=== PATIENT | female | born 1960 | race African-American/Black ===

== ENCOUNTER 2019-03-07 14:35 | Inpatient (IN) ==
[~2019-03-07 14:35] MED LIST: D50W SYRINGE ONE
[2019-03-07] MEDS ORDERED: D50W SYRINGE IV ONE (14:55)
[2019-03-07 15:51] LABS: BILIRUBIN URINE 2+ (NEGATIVE); BLOOD URINE 4+ (NEGATIVE); CLARITY CLEAR (CLEAR); COLOR AMBER; KETONE URINE TRACE mg/dL (NEGATIVE); LEUKOCYTES URINE TRACE (NEGATIVE); NITRITE URINE NEGATIVE (NEGATIVE); PH URINE 6.5; PROTEIN URINE 2+(100 mg/dL) mg/dL (NEGATIVE); UROBILINOGEN URINE 12 mg/dL
--- NOTE | 2019-03-07 15:52 | PROVIDER DOCUMENTATION ---
This chart was entered by Jacqueline Mejia Scribe, acting as scribe for Jeffrey Tejada MD. HPI-General Adult - General Chief Complaint: Low Blood Sugar Stated Complaint: low blood sugar Time Seen by Provider: 03/07/19 14:49 Source: EMS Allergies/Adverse Reactions: Patient Allergies Allergy/AdvReac Type Severity Reaction Status Date / Time No Known Allergies Allergy Verified 06/13/16 15:51 Home Medications: Home Medication List Medication Instructions Recorded Confirmed Last Taken Type Ondansetron HCl [Zofran] 4 mg PO Q4H #20 tablet 09/20/16 02/09/19 02/02/19 Rx Metoclopramide [Reglan] 10 mg 4XDAY PRN 11/14/16 02/09/19 02/01/19 History Hydralazine [Apresoline] 25 mg PO Q8HR #90 tablet 11/24/16 02/09/19 02/03/19 Rx Furosemide 20 mg PO BID 02/04/19 02/09/19 02/03/19 History Furosemide 40 mg PO ACL 02/04/19 02/09/19 02/03/19 History Morphine Sulfate [Morphine Sulfate 1 tab PO BID 02/04/19 02/09/19 02/02/19 History ER] Amoxicillin 500 mg PO DAILY 02/09/19 02/09/19 Unknown History Gabapentin 300 mg PO DAILY 02/09/19 02/09/19 Unknown History Letrozole 2.5 mg PO DAILY 02/09/19 02/09/19 Unknown History Metolazone 5 mg PO DAILY 02/09/19 02/09/19 Unknown History Potassium Chloride 20 meq PO DAILY 02/09/19 02/09/19 Unknown History - History of Present Illness -Gen Adult Nature of Presenting Problems: 59 y/o nonverbal female presents to the ED via EMS after being found unresponsive at home for unknown time period. EMS states blood sugar 24. son states the last time the patient was seen normal was sometime yesterday afternoon. Location of Pain/Injury: reports: generalized Onset/Duration: reports: unsure Timing: reports: still present Similar Symptoms Previously?: No Review of Systems - Adult - REVIEW OF SYSTEMS - ADULT ROS:: limited per condition Constitutional: reports: other (low blood sugar). denies: fever Eyes: reports: no symptoms reported Ears, Nose, Mouth & Throat: reports: no symptoms reported Cardiovascular: reports: no symptoms reported Respiratory: reports: no symptoms reported Gastrointestinal: reports: no symptoms reported Genitourinary: reports: no symptoms reported Musculoskeletal: reports: no symptoms reported Integumentary: reports: no symptoms reported Neurological: reports: other (AMS) Psychiatric: reports: no symptoms reported Endocrine: reports: no symptoms reported Hematologic/Lymphatic: reports: no symptoms reported Allergic/Immunologic: reports: no symptoms reported All Other Systems: Reviewed and Negative Past History - Adult - PAST MEDICAL HISTORY-ADULT Review of Records: reports: Old Records Reviewed, Nursing Assessment Review, Medications Reviewed Major Childhood Illnesses: reports: denies history Cardiovascular: reports: HTN Respiratory: reports: denies history Gastrointestinal: reports: denies history Obstetrical/Gynecological: reports: denies history Genitourinary: reports: denies history Musculoskeletal: reports: denies history Neurological: reports: denies history Endocrine/Immune: reports: denies history Other Conditions: reports: denies history - IMMUNIZATION STATUS Childhood Immunizations: See Nurse Assessment Flu Vaccine: See Nurse Assessment - FAMILY HISTORY Family History: reviewed, not pertinent Physical Exam-General - PHYSICAL EXAM-ADULT Initial Vital Signs Reviewed: Yes - CONSTITUTIONAL General Appearance: thin, other (nonverbal, right facial paresthesia) - EYES Eyes: other (exopthalmos right eye, jaundice) - CARDIOVASCULAR Cardiovascular: regular rate, rhythm, no gallop, no JVD, no murmur - MUSCULOSKELETAL Extremity: pedal edema (bilateral) - SKIN Integumentary: other (left chest port, central line RUE, lipomas chest) Progress - PLAN OF CARE/RESULTS Progress/Plan/Lab Results: Vital Signs - 8 hr 03/07/19 14:35 03/07/19 14:51 Temperature 90.1 F L Pulse Rate 68 Respiratory Rate 16 Blood Pressure 182/97 O2 Sat by Pulse Oximetry 97 Laboratory Results - last 24 hr 03/07/19 14:37 POC Glucose 72 Orders Category Date Time Status Finger Stick Blood Sugar (ED) DIRECTED Care 03/07/19 14:48 Active CHEST-2 VIEWS [RAD] Stat Exams 03/07/19 14:48 Ordered A1C HGB W EST AVG GLUCOSE [CHEM] Stat Lab 03/07/19 14:48 Ordered CBC WITH ELECTRONIC DIFF [HEME] Stat Lab 03/07/19 14:48 Ordered CK PROFILE [SP CHEM] Stat Lab 03/07/19 14:48 Ordered COMPREHENSIVE METABOLIC PANEL [CHEM] Stat Lab 03/07/19 14:48 Uncollected TROPONIN T Stat Lab 03/07/19 14:[address] W/POSS RFLX CULT [URINALYSIS] Stat Lab 03/07/19 14:48 Uncollected Dextrose 50% Syringe [D50w Syringe] Med 03/07/19 14:31 Discontinued 50 ml .ROUTE .STK-MED ONE Dextrose 50% Syringe [D50w Syringe] Med 03/07/19 14:55 Discontinued 50 ml IV NOW ONE Hypo/Hyperglycemia Complaint Stat Oth 03/07/19 14:47 Ordered EKG [EKG] Stat Ther 03/07/19 14:49 Ordered Result Diagrams: 03/07/19 15:33 - EKG 1 Time of EKG reading by physician:: 15:00 EKG Read and Signed by:: Jeffrey Tejada EKG Interpretation (*Must complete 3 of following elements*): Abnormal Rate: 47 Rhythm: sinus bradycardia w/sinus arrhythmia Comments: LVH with QRS widening and repolarization abnormality - CONSULTS/PCP/HOSPITALIST Notification #1 *Consult/PCP/Hospitalist*: Dr. 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 The physician did have a face to face encounter with the patient. This chart was documented by the indicated scribe, (Jacqueline Mejia, [place]) and accurately reflects the services I performed and decisions made by me, Jeffrey Tejada MD, as attested by the provider's signature.
[2019-03-07 16:10] LABS: BASO# 0.23 X1000 (0.0-0.2); BASO% 3.7 % (0.0-0.8); EOS# 0.01 X1000 (0.0-0.7); EOS% 0.2 % (0.0-10.0); HEMATOCRIT 23.4 % (37.0-47.0); HEMOGLOBIN 7.4 g/dL (12.0-16.0); IMM GRAN# 0.14 X1000 (0.0-0.04); IMM GRAN% 2.2 % (0.0-0.5); LYMPH# 2.35 X1000 (1.2-3.4); LYMPH% 37.6 % (20.5-51.1); MCH 26.9 PG (27-31); MCHC 31.6 g/dL (33-37); MCV 85.1 FL (81-99); MONO# 0.49 X1000 (0.11-0.59); MONO% 7.8 % (1.7-9.3); NEUT# 3.03 X1000 (1.4-6.5); NEUT% 48.5 % (42.2-75.2); PLT 10 X1000 (130-400); RBC 2.75 XMIL (4.2-5.4); RDW 19.3 % (11.5-14.5); WBC 6.25 X1000 (4.8-10.8)
[2019-03-07 16:11] LABS: AGAP 15; ALBUMIN 2.3 g/dL (3.5-5.0); ALKALINE PHOSPHATASE 1121 U/L (32-104); BUN 50 mg/dL (8-22); CALCIUM 7.6 mg/dL (8.8-10.2); CHLORIDE 93 mmol/L (98-107); COSMO 305; CREATININE 0.5 mg/dL (0.5-0.9); ESTIMATED GFR > 60; GLUCOSE 191 mg/dL (70-104); GOT 420 U/L (10-30); GPT 111 U/L (10-36); POTASSIUM 2.9 mmol/L (3.5-5.1); SODIUM 144 mmol/L (136-145); TCO2 35 mmol/L (25-35); TOTAL PROTEIN 5.5 g/dL (6.3-8.3)
--- NOTE | 2019-03-07 16:23 | Diag Imaging Result Doc PS360 ---
EXAM: CT HEAD W/O CONTRAST HISTORY: ams TECHNIQUE: CT head without contrast. COMPARISON: 09/18/2016 FINDINGS: No parenchymal hemorrhage. No epidural or subdural hematoma. No subarachnoid hemorrhage there is a hypodense area in the left temporal region which was not present on the prior exam. There is a separate hypodense area in the posterior left frontal lobe. No hydrocephalus. The skull is diffusely sclerotic with multiple focally more dense lesions. There is opacification of the right frontal sinus with prominent mucus in the right ethmoid and maxillary sinus. IMPRESSION: 1.Hypodense areas on the left concerning for edema possibly due to metastases. An MRI with contrast is recommended. 2.Bony metastases. This exam was performed using automated exposure control, adjustment of mA or kV according to patient size, and/or use of iterative reconstruction technique. Electronically signed by Salas Suarez 03/07/2019 4:20 PM
[2019-03-07 16:32] LABS: URINE SOURCE CATH
[2019-03-07 16:36] LABS: URINE SMALL ROUND CELLS RENAL PRESENT
[2019-03-07 16:37] LABS: URINE RBC <10 /HPF (<10); URINE WBC <10 /HPF (<10)
[2019-03-07 16:38] LABS: URINE BACTERIA 2+ /HFP; URINE EPITHELIAL CELLS <10 /HPF (<10); URINE YEAST NONE SEEN /HPF
[2019-03-07 16:43] LABS: CK INDEX 1.1 (0.0-2.5); CK-MB 5.57 ng/mL (0.0-5.0)
[2019-03-07 16:47] LABS: URINE CAST GRANULAR PRESENT /LPF
--- NOTE | 2019-03-07 17:20 | Diag Imaging Result Doc PS360 ---
EXAM: CHEST-PORTABLE HISTORY: ams TECHNIQUE: Portable chest single view COMPARISON: 11/21/2016 FINDINGS: The bones of the chest and upper extremities are sclerotic. The lungs are well expanded. The heart is mildly enlarged. There is a right-sided PICC line and a left subclavian portacatheter. No pneumothoraces. No pleural effusions identified. No pneumonia. IMPRESSION: Bony metastases. Electronically signed by Salas Suarez 03/07/2019 5:18 PM
[2019-03-07 17:21] LABS: INR 1.5; PROTIME 18.9 Seconds (11.0-16.0)
[2019-03-07] MEDS ORDERED: D50W SYRINGE IV PRN (17:30)
[2019-03-07] MEDS: PROTONIX IV SCH (17:32)
[2019-03-07] MEDS: SODIUM CHLORIDE 0.9% INJ SCH (17:32)
[2019-03-07 17:33] LABS: TOTAL IRON 122 ug/dL (49-151)
[2019-03-07] MEDS: POTASSIUM CHLORIDE 20 MEQ/SWI 20 MEQ/100 ML IVPB IV SCH ×2 (17:35→20:45)
[2019-03-07] MEDS ORDERED: NS 1,000 ML ONE (18:40)
--- NOTE | 2019-03-07 18:58 | Diag Imaging Result Doc PS360 ---
EXAM: US GB < RUQ (LIMITED) HISTORY: obstructive jaundice TECHNIQUE: Right upper quadrant ultrasound COMPARISON: None. FINDINGS: Normal pancreas. No abdominal aortic aneurysm. Normal inferior vena cava. No focal hepatic normality. No right renal mass or hydronephrosis. There is a small amount of free fluid about the liver. The common bile duct measures 4 mm. The gallbladder wall is thickened. This is frequently seen with ascites. There is echogenic sludge within the gallbladder. IMPRESSION: 1.Small amount of ascites 2.Gallbladder sludge Electronically signed by Salas Suarez 03/07/2019 6:56 PM
--- NOTE | 2019-03-07 19:51 | HISTORY AND PHYSICAL ---
ADDENDUM: Patient seen and examined by myself, full note dictated and discussed with nurse practitioner. Patient presented to the hospital with severe hypoglycemia. She was noted this morning to have had a blood sugar at 24. Ambulance was called and she was transferred to the hospital. She was given D10 en route. Unfortunately Ms. Angel is an extremely frail, somewhat chronically ill-appearing female who has a known history of cancer and metastases. We will admit her to the hospital, IV fluids, will continue to further her workup. Certainly concerning that she may have metastases to her liver as her bilirubin level is also elevated. Will attempt to talk with the son about the patient's code status as well as chronic treatment status. Expect that she has a very short term prognosis. cc: Bandar Alvarez MD
--- NOTE | 2019-03-07 20:07 | HISTORY AND PHYSICAL ---
ONCOLOGIST: Dr. Alvarado. CHIEF COMPLAINT: Unresponsiveness. HISTORY OF PRESENT ILLNESS: Mrs. Angel is an unfortunate 59-year-old female with a history of metastatic breast cancer with metastasis to a large part of the skeletal system as well as the brain, who presents with unresponsiveness. She has multiple family members at the bedside, but she is a poor historian given her overall physical status. Apparently she lives alone and was called by her family multiple times and she did not product picker the phone. They came over to check on her today and she was found unresponsive on the toilet. The family states the last time they saw her in her normal state of health was yesterday. She had an initial blood sugar of 24, per report. She was brought to our ER. In the ER she had labs and diagnostics done. Head CT shows hypodense area on the left, concerning for edema, possibly due to metastasis. MRI is recommended and there is also bony metastasis. She has had a recent brain MRI last month by Dr. Alvarado that showed new masses in the left frontal lobe, left temporal lobe, and left occipital lobe with significant vasogenic edema and bony metastasis. Laboratory data shows anemia and critical thrombocytopenia. She also has extremely high liver function tests, which is a new finding for her. Just two weeks ago her total bilirubin was 1.1 and today it is 9. She is extensively jaundiced. She is able to tell us that she has some abdominal pain with palpation. She is extremely hypothermic with a temperature of 90.1, but she is hemodynamically stable at this time. We have discussed the patient's diagnoses and overall prognosis and the family, at this time, wishes for Mrs. Angel to be FULL CODE. She will be admitted to ICU for further treatment and evaluation. PAST MEDICAL HISTORY: 1. Metastatic breast cancer with metastasis to a large portion of the skeletal system as well as to the brain. 2. Hypertension. 3. Severe protein-calorie malnutrition. 4. Chronic anemia and thrombocytopenia. 5. Nicotine dependence. PAST SURGICAL HISTORY: She has had central line placement and tooth surgery. SOCIAL HISTORY: She smokes half a pack a day. There is no drug use and no alcohol use. She lives alone but has multiple children at the bedside. FAMILY HISTORY: Noncontributory. REVIEW OF SYSTEMS: Unable to obtain. ALLERGIES: No known drug allergies. HOME MEDICATIONS: Have not been compiled, unknown at this time. PHYSICAL EXAMINATION: VITAL SIGNS: Blood pressure is 159/73, heart rate is 61, respiratory rate is 18, O2 saturation 99% on room air. Temperature is 90.2. GENERAL: This is a cachectic and disheveled appearing 59-year-old female lying in hospital bed, in no acute distress. NEUROLOGICAL: She is extremely lethargic. She is able to open up her eyes to tactile stimulus. She is able to tell us she is in [place] and that it is 2019. She follows commands without focal deficits. HEENT: Head is atraumatic and normocephalic. Her pupils are equal and sluggish to light response bilaterally. Her sclerae are extremely icteric. Oral mucosa is dry and pale. NECK: Supple. Trachea is midline. CHEST: Diminished at the bases but clear to auscultation bilaterally. CARDIOVASCULAR: Slightly bradycardic but regular. S1, S2 is noted. GASTROINTESTINAL: Slightly tender to palpation but nondistended. Hepatomegaly is noted. Bowel sounds are hypoactive. EXTREMITIES: Right lower extremity with 2+ edema, left, with trace edema. Pulses palpable. DIAGNOSTIC DATA: Head CT shows left edema and metastatic lesions. Chest x-ray shows severe skeletal lytic lesions; COPD changes in the lungs; mild cardiomegaly; nothing acute. WBC 6.25, hemoglobin 7.4, hematocrit 23.4, platelet count 10. Sodium 144, potassium 2.9, chloride 93, CO2 35, anion gap 15, BUN 50, creatinine 0.5, glucose is 191, calcium 7.6, bilirubin 9, AST 420, ALT 111, alkaline phosphatase is 1121. CK 515. Albumin 2.3. Lactic acid 3.3. There is glucose, protein, and bilirubin in the urine; 2+ bacteria. ASSESSMENT AND PLAN: 1. Severe hypoglycemia causing metabolic encephalopathy: This has improved with glucose administration. Will continue to monitor her blood sugar every two hours, treating as necessary. Currently, her blood sugar is in the 200s. Presumably, this is somewhat nutrition related, but given the new obstructive jaundice, possibly hepatic related as well. Will watch her blood sugar closely. 2. Obstructive jaundice: The patient has had a dramatic jump in her liver function tests and she is clearly jaundiced and confused. Will check an ammonia level, right upper quadrant ultrasound, and lipase and amylase. 3. Critical thrombocytopenia: Will transfuse two units of platelets at this time. Monitor her CBC daily. Check iron studies. 4. Severe protein-calorie malnutrition: Will start some partial parenteral nutrition now along with intravenous fluid hydration. We will check a magnesium and phosphorus as well. 5. Lactic acidosis: Likely volume mediated. Will hydrate and check another lactate. 6. Metastatic breast cancer: The patient has metastatic lesions to the entirety of the skeletal system as well as the brain and now possibly the liver. Her prognosis is extremely poor. Will continue to discuss this with the family and discuss this with Dr. Alvarado as well. In the meantime she is FULL CODE. 7. Deep venous thrombosis prophylaxis with sequential compression devices. Further recommendations to follow. Dictated by DHARA Hanson for Bandar Alvarez MD cc: DHARA Hanson MD Naveen T. Lobo, MD
[2019-03-07] MEDS ORDERED: D5W 1,000 ML IV SCH (20:30)
[2019-03-07 21:08] LABS: HEMOGLOBIN A1C 4.3 % (4.8-6.0)
[2019-03-08] MEDS: CLINIMIX E 4.25%-5% SOLUTION 1,000 ML IV SCH ×3 (00:20→13:27)
[2019-03-08] MEDS: D5W 1,000 ML IV SCH ×3 (00:45→13:27)
[2019-03-08 07:28] LABS: BASO# 0.15 X1000 (0.0-0.2); BASO% 2.1 % (0.0-0.8); EOS# 0.02 X1000 (0.0-0.7); EOS% 0.3 % (0.0-10.0); HEMATOCRIT 17.8 % (37.0-47.0); HEMOGLOBIN 5.7 g/dL (12.0-16.0); IMM GRAN# 0.12 X1000 (0.0-0.04); IMM GRAN% 1.6 % (0.0-0.5); LYMPH# 2.39 X1000 (1.2-3.4); LYMPH% 32.8 % (20.5-51.1); MCV 84.4 FL (81-99); MONO# 0.46 X1000 (0.11-0.59); MONO% 6.3 % (1.7-9.3); NEUT# 4.15 X1000 (1.4-6.5); NEUT% 56.9 % (42.2-75.2); PLT 138 X1000 (130-400); RBC 2.11 XMIL (4.2-5.4); RDW 19.7 % (11.5-14.5); WBC 7.29 X1000 (4.8-10.8)
[2019-03-08 07:42] LABS: AGAP 14; ALBUMIN 2.7 g/dL (3.5-5.0); ALKALINE PHOSPHATASE 941 U/L (32-104); BANDS 3 % (0-1); BUN 45 mg/dL (8-22); CALCIUM 7.5 mg/dL (8.8-10.2); CHLORIDE 93 mmol/L (98-107); COSMO 290; CREATININE 0.4 mg/dL (0.5-0.9); ESTIMATED GFR > 60; GLUCOSE 151 mg/dL (70-104); GOT 282 U/L (10-30); GPT 81 U/L (10-36); LYMPHS 29 % (21-51); MAGNESIUM 1.8 mg/dL (1.5-2.7); MONO 3 % (1-9); NRBC 3 % (0-0); PHOSPHORUS 4.1 mg/dL (2.7-4.5); POTASSIUM 3.2 mmol/L (3.5-5.1); SEGS 65 % (42-75); SODIUM 138 mmol/L (136-145); TCO2 31 mmol/L (25-35); TOTAL PROTEIN 5.6 g/dL (6.3-8.3)
[2019-03-08 07:46] LABS: ANISOCYTOSIS 4+; HYPOCHROM 1+; MICROCYTOSIS 1+; POIKILOCYTOSIS 4+; SCHISTOCYTES 1+
[2019-03-08] MEDS ORDERED: NS 500 ML ONE (09:00)
--- NOTE | 2019-03-08 12:05 | Extremity Venous Study ---
EXAM: Venous U/S Bilateral Legs 03/08/2019 HISTORY: rule out dvt TECHNIQUE: Compression venous ultrasound with color Doppler of both lower extremities. COMMENT: The deep veins of both lower extremities are compressible and there is normal color Doppler flow with augmentation. No abnormal fluid collections are present. IMPRESSION: No evidence of deep venous thrombosis. Electronically signed by Paco Cook 03/08/2019 12:02 PM
--- NOTE | 2019-03-08 12:14 | EKG Report ---
Test Performed on : 03/07/2019 3:00:06 PM Test Reason : ams Blood Pressure : / mmHG Vent. Rate : 047 BPM Atrial Rate : 047 BPM P-R Int : 148 ms QRS Dur : 132 ms QT Int : 558 ms P-R-T Axes : 055 -01 105 degrees QTc Int : 493 ms Sinus bradycardia. with sinus arrhythmia. Left ventricular hypertrophy with QRS widening and repolarization abnormality Abnormal ECG When compared with ECG of 08-MAY-2018 12:10, Vent. rate has decreased BY 23 BPM QRS duration has increased T wave inversion no longer evident in Inferior leads T wave inversion more evident in Anterior leads T wave inversion less evident in Lateral leads Unconfirmed Result
[2019-03-08] MEDS ORDERED: POTASSIUM CHLORIDE 40 MEQ/SWI 40 MEQ/100 ML IVPB IV ONE (13:14)
[2019-03-08] MEDS: FOLIC ACID 1 MG in NS 50 ML IV SCH (13:47)
--- NOTE | 2019-03-08 13:53 | PROGRESS NOTE ---
DATE: 03/08/2019 SUBJECTIVE: Patient has no major complaints. OBJECTIVE: Blood pressure 173/74, heart rate of 73, respiratory rate of 18, temperature 99.8 degrees, 94% on room air.Cardiovascular: Regular rate and rhythm. Pulmonary: Bilateral breath sounds. Clear to auscultation. GI: Was soft, nontender, nondistended. Bowel sounds are positive. Extremities: No clubbing or cyanosis. Lymphatic: No peripheral edema. Neurological: Nonfocal. LABORATORY DATA: White count 7, hemoglobin and hematocrit is dropped to 5 and 17, platelets up to 138,000, potassium 3.4, T bilirubin 6.3, AST and ALT of 282 and 81. Folate is low. PROBLEM LIST: 1. Metastatic breast cancer with metastases to skeleton and central nervous system. However, she may have new liver metastasis or at least she has liver toxicity, which we do not have a good explanation for at this point. Her numbers are a bit better but unclear what the etiology is. It may be related to hypotension although her blood pressure if anything has been high so I think that is inconsistent. She is not on a lot of Tylenol products. Certainly could be biliary disease although at this point I am not sure what we else be able to do for her, since she has metastatic cancer. She is not really a great surgical candidate at this point and hospice is really should be a very strong consideration but at this point I think family is very hesitant about pursuing that but we will check for hepatitis, Tylenol level. Her ammonia level is high. I am not sure if that is associated acute liver injury. She is already having significant diarrhea. We will try to give lactulose and Xifaxan and see how she does. 2. Thrombocytopenia. Level has greatly improved after transfusion. We will continue to follow. 3. Severe protein-calorie malnutrition. Continue treatment and follow. 4. Profound hypoglycemia. That is improved but she is on Clinimix and D5 so hard to say at this point I would say it is not completely improved but will see how things look. DISPOSITION: Pending her clinical status. 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 She does not seem to be responding to therapy and she is profoundly cachectic and underweight 86 pounds with a BMI of 16. Not sure how much more she can tolerate in this setting. cc: Rob Jennings MD
[2019-03-08] MEDS ORDERED: TOPROL XL PO ONE (15:51)
[2019-03-08] MEDS ORDERED: CATAPRES PO PRN (15:54)
[2019-03-08] MEDS ORDERED: VANCOMYCIN IV PER PHARMACY MISC SCH (17:00)
[2019-03-08] MEDS: PROTONIX IV SCH (17:56)
[2019-03-08] MEDS: SODIUM CHLORIDE 0.9% INJ SCH (17:56)
[2019-03-08] MEDS ORDERED: VANCOMYCIN 1,350 MG in NS 250 ML IV ONE (18:00)
[2019-03-09] MEDS: D5W 1,000 ML IV SCH (01:46)
[2019-03-09] MEDS: CLINIMIX E 4.25%-5% SOLUTION 1,000 ML IV SCH ×2 (01:46→16:31)
[2019-03-09 07:42] LABS: BASO# 0.07 X1000 (0.0-0.2); BASO% 1.1 % (0.0-0.8); EOS# 0.02 X1000 (0.0-0.7); EOS% 0.3 % (0.0-10.0); HEMATOCRIT 25.4 % (37.0-47.0); HEMOGLOBIN 8.3 g/dL (12.0-16.0); IMM GRAN# 0.17 X1000 (0.0-0.04); IMM GRAN% 2.6 % (0.0-0.5); LYMPH% 39.5 % (20.5-51.1); MCH 25.9 PG (27-31); MCHC 32.7 g/dL (33-37); MCV 79.1 FL (81-99); MONO# 0.35 X1000 (0.11-0.59); MONO% 5.3 % (1.7-9.3); NEUT# 3.37 X1000 (1.4-6.5); NEUT% 51.2 % (42.2-75.2); PLT 86 X1000 (130-400); RBC 3.21 XMIL (4.2-5.4); RDW 20.3 % (11.5-14.5); WBC 6.58 X1000 (4.8-10.8)
[2019-03-09 07:44] LABS: AGAP 11; ALBUMIN 2.5 g/dL (3.5-5.0); ALKALINE PHOSPHATASE 870 U/L (32-104); BUN 43 mg/dL (8-22); CHLORIDE 93 mmol/L (98-107); COSMO 279; CREATININE 0.3 mg/dL (0.5-0.9); ESTIMATED GFR > 60; GLUCOSE 70 mg/dL (70-104); GOT 194 U/L (10-30); GPT 59 U/L (10-36); POTASSIUM 3.6 mmol/L (3.5-5.1); SODIUM 135 mmol/L (136-145); TCO2 31 mmol/L (25-35); TOTAL PROTEIN 5.3 g/dL (6.3-8.3)
--- NOTE | 2019-03-09 08:23 | Diag Imaging Result Doc PS360 ---
EXAM: CT ABDOMEN W/CONTRAST - 03/09/2019 HISTORY: elevated liver enzymes TECHNIQUE: CT abdomen with intravenous contrast. COMPARISON: 11/27/2018 FINDINGS: There are small bilateral pleural effusions with adjacent dependent atelectasis. There has been development of multiple low-density lesions in the liver. These are suspicious for metastases. There is stable mild prominence of the spleen. There is moderate ascites. There is generalized subcutaneous edema compatible with anasarca. There are no calcified gallstones identified. There are no acute abnormalities of the adrenal glands, pancreas, or kidneys identified. There are no substantial enlarged lymph nodes identified. There is no evidence of bowel obstruction. There is no abscess identified. There is no free air identified. There is extensive sclerotic and destructive bony metastatic disease similar to the prior exam. IMPRESSION: Development of multiple liver metastases. Moderate ascites. Small bilateral pleural effusions. Anasarca. No bowel obstruction. No free air. Extensive bony metastases similar to prior. This exam was performed using automated exposure control, adjustment of mA or kV according to patient size, and/or use of iterative reconstruction technique. Electronically signed by Robert Green 03/09/2019 8:20 AM
[2019-03-09 09:01] LABS: ANISOCYTOSIS 2+; LYMPHS 38 % (21-51); MICROCYTOSIS 1+; MONO 6 % (1-9); NRBC 5 % (0-0); SCHISTOCYTES OCCASIONAL; SEGS 56 % (42-75)
[2019-03-09] MEDS: TOPROL XL PO SCH (09:54)
[2019-03-09] MEDS: VANCOMYCIN 1 GM/NS 1 GM/250 ML IVPB IV SCH (11:56)
[2019-03-09] MEDS: FOLIC ACID 1 MG in NS 50 ML IV SCH (14:01)
[2019-03-09] MEDS: XIFAXAN PO SCH ×3 (15:27→21:59)
[2019-03-09] MEDS: NORVASC PO SCH (15:27)
[2019-03-09] MEDS: DECADRON IV SCH ×2 (16:31→21:59)
--- NOTE | 2019-03-09 16:37 | PROGRESS NOTE ---
DATE: 03/09/2019 SUBJECTIVE: The patient does seem a little bit more somnolent today than she was but she has kind of been out of it this whole time. OBJECTIVE: Blood pressure 179/76, heart rate of 62, respiratory rate of 17, temperature 98.7 degrees, 97% on room air.Cardiovascular: Regular. Pulmonary: Bilateral breath sounds. Clear to auscultation. GI: Soft, nontender, nondistended. Bowel sounds are positive. LABORATORY DATA: White count 6, hemoglobin and hematocrit 8 and 25, platelets of 86,000, down from 143.3, T bilirubin is down to 3.7, AST 194, ALT 59, alkaline phosphatase 87. PROBLEM LIST: 1. Metastatic breast cancer with metastases to bone and central nervous system. These are progressing. Now she has numerous liver metastases that is new. I still think she is getting treatment but she is just obviously getting worse. She is really unfortunately getting worse. I think her central nervous system metastasis are progressing as well. I am going to go ahead with MRI as recommended but she had new central nervous system metastasis on her MRI in January. 2. Thrombocytopenia that has slowly drifted downwards. 3. Renal failure, dehydration. We will continue hydration. 4. Hypoglycemia. That has stabilized although she is still on supplementation. I am going to start her on some stress dose steroids and see how she does. 5. Hypertension which may be a Yeso response from swelling because she has brain swelling, she has hypertension and bradycardia. She did have a very elevated ammonia level as well. We are going to repeat that and initiate Xifaxan and lactulose. We are discussing with patient and family about long-term care because she is declining and I do not think she is in any shape to undergo any more treatment. I will discuss with Dr. Alvarado about other treatment options because I really do not know what were going to be able to do amenably for her because she has had progression in her disease just in the last month not even month less than a month and that is despite previous treatment. cc: Rob Jennings MD [facility]
[2019-03-09] MEDS: SODIUM CHLORIDE 0.9% INJ SCH (17:39)
[2019-03-09] MEDS: PROTONIX IV SCH (17:39)
[2019-03-09] MEDS ORDERED: LASIX PO PRN (18:01)
[2019-03-10] MEDS: CLINIMIX E 4.25%-5% SOLUTION 1,000 ML IV SCH (01:41)
[2019-03-10] MEDS: VANCOMYCIN 1 GM/NS 1 GM/250 ML IVPB IV SCH (05:05)
[2019-03-10] MEDS: DECADRON IV SCH (05:05)
[2019-03-10] MEDS: TOPROL XL PO SCH (10:22)
[2019-03-10] MEDS: NORVASC PO SCH (10:22)
[2019-03-10] MEDS: XIFAXAN PO SCH (10:23)
--- NOTE | 2019-03-10 10:27 | Diag Imaging Result Doc PS360 ---
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 COMPARISON: CT scan 03/07/2019, MRI 02/10/2019 FINDINGS: There is abnormal T2 hyperintensity and enhancement within the left posterior occipital lobe, left anterior temporal lobe, and left inferior frontal lobe. Although the areas of edema are larger than prior any actual areas of tumor enhancement are slightly smaller. 17 mm maximal dimension anterior temporal lobe, 17 mm maximal dimension left frontal lobe and 6 mm left occipital lobe. There is fairly extensive meningeal enhancement overlying the bilateral anterior temporal lobes and cavernous sinuses. There is new mild mass effect upon the left cerebral peduncle. There is abnormal signal within the right anterior temporal lobe but no abnormal parenchymal enhancement right temporal lobe. There is an enhancing right scalp lesion. There is extensive calvarial metastatic disease. No hydrocephalus. There is mass effect upon the left temporal horn. There is extensive bilateral mastoiditis and right frontal, ethmoid, and maxillary sinuses . IMPRESSION: 1.Increased vasogenic edema from known metastatic disease however actual enhancing tumor nodules may be slightly decreased in size. 2. Increased nonenhancing abnormal signal right anterior temporal lobe. 3.Marked meningeal enhancement bilateral anterior temporal lobes. 4.Increased vasogenic edema left temporal lobe abuts the left cerebral peduncle of the midbrain with mild mass effect upon the anterior horn of the left lateral ventricle slightly increased from prior. 5.Extensive sinusitis and mastoiditis. 6.Extensive calvarial and possibly right subcutaneous metastatic disease Electronically signed by Anastasiya De Los Santos 03/10/2019 10:25 AM
[2019-03-10] MEDS ORDERED: DILAUDID IV PRN (15:21)
[2019-03-10] MEDS ORDERED: ZOFRAN IV PRN (15:22)
[2019-03-10] MEDS ORDERED: ATROPINE 1 % OPHTH SOLN SL PRN (15:23)
[2019-03-10] MEDS ORDERED: TYLENOL PO PRN (15:23)
[2019-03-10] MEDS ORDERED: MBX SOLUTION MT PRN (17:23)
--- NOTE | 2019-03-10 17:25 | PROGRESS NOTE ---
DATE: 03/10/2019 SUBJECTIVE: The patient is sitting up in bed. She really has no major complaints. She has some lid lag and weakness on the left side of her face, especially in her upper. In any case, she is doing okay. No major complaints. 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 OBJECTIVE: Objective data is unremarkable. Vital signs: Blood pressure is 173/67, heart rate 61, respiratory rate 14, and temperature 97.4 degrees. Cardiovascular: Regular rate and rhythm. Pulmonary: Bilateral breath sounds. Clear to auscultation. GI: Soft, nontender, nondistended. Bowel sounds are positive. Extremities: No clubbing or cyanosis. Lymphatic: No peripheral edema. Neurological: Exam was nonfocal except as described. She has the weakness. PROBLEM LIST: 1. Metastatic breast cancer with metastases to the bone. She has had progression in her disease. I had a discussion with Dr. Alvarado who stated that at this point she was palliative care only. They were going to offer chemo if she had improved her functional status, which was not the case and she has had progression of the disease. She has progression in her metastases with more vasogenic edema and she has new liver metastases that she did not have before with liver failure, so she is actively dying from her metastatic disease. Plan will be to continue treatment and follow. 2. Thrombocytopenia. She is stable currently. 3. Renal failure, dehydration. We will continue hydration and follow. 4. Hypoglycemia, likely due to just poor overall. Family has elected to pursue comfort care. We are doing comfort care measures only. Appreciate palliative care service. I discussed with the son the case yesterday. DISPOSITION: Pending her clinical status but she is actively dying. She is having vasogenic edema. She is at risk for stroke, unresponsiveness, seizure. We are going to work on trying to get her as comfortable as possible and follow closely. For her needs we could certainly do hospice at home, but this will be per the family's consideration. cc: Rob Jennings MD
[2019-03-10] MEDS ORDERED: ROCEPHIN 1 GM in NS 50 ML IV SCH (18:00)
[2019-03-11] MEDS ORDERED: ATIVAN IV PRN (15:51)
--- NOTE | 2019-03-11 16:08 | PROGRESS NOTE ---
DATE: 03/11/2019 SUBJECTIVE: Patient has no focal complaints. She has some dysconjugate gaze, but she is not really very responsive. She is eating. She does track, but she may be more responsive with her family. OBJECTIVE: Vital Signs: Blood pressure 158/71, heart rate 73, respiratory 16, temperature 98 degrees, satting 95% on room air. Cardiovascular: Regular rate and rhythm. Pulmonary: Bilateral breath sounds. Clear to auscultation. GI: Was soft, non tender, nondistended. Bowel sounds are positive. LABORATORY DATA: No new data today. PROBLEM LIST: 1. Metastatic breast cancer with metastases to the skeleton, skeletal bone, central nervous system, brain metastases and now new hepatic metastases. The patient is terminal. She is actively dying of cancer; I think combination of hepatic failure and progression in vasogenic edema from her central nervous system metastases. Family has decided to pursue comfort care measures, and they are aware of active demise. We are pursuing hospice and anticipating getting everything set up tomorrow. 2. Renal failure, aware. 3. Related dehydration. DISPOSITION: Again anticipate hospice tomorrow. We will continue to follow closely. cc: Rob Jennings MD
[2019-03-12 07:46] VITALS: BP 183/77
--- NOTE | 2019-03-12 13:06 | PROGRESS NOTE ---
DATE: 03/12/2019 The patient is doing okay. No focal complaints. She just seems like she is just deteriorating though she is continuing to deteriorate as I feel like she is unresponsive. She is jaundiced. She has a dysconjugate gaze. Family is with her. Unfortunately, she has metastatic breast cancer with diffuse metastases now to the liver worsening to the brain. Plan will be to discharge her to hospice today in care of family. This is a [id number] encounter note with DHARA Rodriguez. TIME SPENT: 32 minute discharge. cc: Rob Jennings MD
--- NOTE | 2019-03-13 03:56 | DISCHARGE SUMMARY ---
ADMISSION DATE: 03/07/2019 DISCHARGE DATE: 03/12/2019 ADDENDUM: She was about to go home for hospice and as EMS came to evaluate her, she has . She is pulseless and apneic. CAUSE OF /DISCHARGE DIAGNOSES: 1. Acute hepatic failure related to metastatic breast cancer. 2. Progressive central nervous system metastases. 3. Acute renal failure. cc: Rob Jennings MD
--- NOTE | 2019-03-13 10:04 | DISCHARGE SUMMARY ---
ADMISSION DATE: 03/07/2019 DISCHARGE DATE: 03/12/2019 ADMISSION DIAGNOSES: 1. Severe hypoglycemia causing metabolic encephalopathy. 2. Obstructive jaundice. 3. Critical thrombocytopenia. 4. Severe protein calorie malnutrition. 5. Lactic acidosis. 6. Metastatic breast cancer to bone and brain and possibly liver. He is followed by Dr. Alvarado. DISCHARGE DIAGNOSES: 1. Metastatic breast cancer with metastases to the skeleton central nervous system and brain and hepatic metastases as well, terminal and Do Not Resuscitate Level 1. 2. Renal failure. 3. Related dehydration. CONSULTATIONS: Hospice Care and Palliative Care. SURGERIES OR PROCEDURES: None. HOSPITAL COURSE: Ashwini Angel is a 59-year-old -[place] female who was admitted on 03/07/2019 as she presented as unresponsive. She had multiple family members at the bedside but were poor historians. Apparently she is living by herself, and the family called multiple times where she did not answer the phone. They went to check on her and found her unresponsive. Her last normal was apparently the day prior to admission. Her initial blood sugar was 24. She was brought to the emergency department at [facility]. Head CT showed on the left, concerning for vasogenic edema due to metastasis. MRI showed bone metastasis. Currently, there is new left frontal lobe and left central lobe, left occipital lobe, with vasogenic edema and bony metastases with critical thrombocytopenia. She was extremely hypothermic with a temperature of 90.1 but hemodynamically stable otherwise. She was jaundiced and had some abdominal pain with palpation, so she was treated and evaluated in the ICU. Blood glucose levels were checked and treated. She had during her stay 2 packed red blood cells and 2 plasmapheresis platelets. Platelet count was at 10 with hemoglobin 7 and hematocrit 23. They dropped down to 5 and 17. As she was not improving, she had Palliative Care consulted, and she was made Do Not Resuscitate Level 1 and full comfort care Hospice and will be discharged home today with that. She apparently has disconjugate gaze, not very responsive. She is eating. She does track and is more responsive with her family. DISCHARGE VITAL SIGNS: Temperature 98.1, heart rate 74, respiratory rate 16, blood pressure 77, O2 saturation 97% on room air. DISCHARGE LABORATORY DATA: Back on 03/09/2019: She had a WBC 6000, hemoglobin 8, hematocrit 25, platelet count 86. Sodium 135, potassium 3.6, BUN 43, creatinine 0.3, glucose 119, calcium 8.0, bilirubin 3.70, AST 194, ALT 59, albumin 2.5. PERTINENT IMAGING: On 03/07/2019: Head CT areas on the left concerning for edema possibly due to metastasis Chest x-ray. Abdominal Ultrasound: Small amount of ascites and gallbladder sludge. On 03/08/2019, she had an extremity venous ultrasound of the bilateral legs that showed no DVT. On 03/09/2019, she had an abdominal CT that showed development of multiple liver metastases, moderate ascites, small bilateral pleural effusions, anasarca, no bowel obstruction, no free air, extensive bony metastases and On 03/10/2019, she had a brain MRI that showed increased vasogenic edema from known metastatic disease, however, actual enhancing tumor nodules may be slightly decreased in size, increased non-enhancing abnormal signal right anterior temporal lobe, marked meningeal enhancement bilateral anterior temporal lobes, increased vasogenic edema in the left temporal lobe. left peduncle of the mid brain with mild mass effect upon of the left lateral ventricle from prior. Extensive sinusitis and mastoiditis and extensive calvarial and possible right subcutaneous metastatic disease. DISCHARGE MEDICATIONS: 1. Syndros 1.2 mL daily 2. Ceftriaxone 2 g IV q 24 hours. 3. Folic acid 1 mg p.o. daily. 4. Lasix 20 mg p.o. daily. 5. Morphine 30 mg p.o. twice daily. 6. Omeprazole 20 mg p.o. daily. 7. Phenergan 25 mg 8. Potassium chloride 20 mEq p.o. daily. 9. Reglan 10 mg p.o. times daily. 10.Remeron 30 mg p.o. nightly. 11.Toprol XL 100 mg p.o. daily. 12.Venelex topical to wound. DISCHARGE DIET: Mechanical soft. DISCHARGE ACTIVITY: As tolerated. DISCHARGE INSTRUCTIONS: Take medications as prescribed. Follow up and instructions. DISCHARGE DISPOSITION: Home with Hospice. Dictated by DHARA Rodriguez for Rob Jennings MD cc: DHARA Rodriguez MD [facility]
== END 2019-03-12 15:15 | disposition expired | DRG 640 ==
LOC: P.ED 14:35 → SUATTDRO 18:40 → EDIPHOLD 18:40 → P.ICU 03-08 00:44 → P.MEDSURG 03-09 17:54
PROVIDERS: ATTEND Internal Medicine
CPT/HCPCS: 36415; 36430; 51702; 70450; 70553; 71010; 71045; 74160; 76705; 80048; 80053; 80061; 80076; 81001; 82140; 82550; 82553; 82607; 82728; 82746; 82948; 83036; 83540; 83550; 83605; 83721; 83735; 84100; 84484; 85025; 85610; 86850; 86900; 86901; 86920; 87040; 87088; 93005; 93970; 96365; 96366; 96367; 96368; 96375; 96376; 99285; A9270; A9579; C9113; J0696; J1100; J3370; J3480; J7030; J7040; J7050; J7070; P9016; P9035; Q9967; S0164; XXXXX